=== PATIENT | male | born 1975 | race Caucasian/White ===

== ENCOUNTER 2023-09-15 05:14 | Inpatient (IN) | payer OTHER ==
[2023-09-15] VITALS (7 sets, daily range): BP systolic 120–144; BP diastolic 55–84; PULSE 62–76; RESP 18; TEMP 97.9–98.5; O2SAT 98–100
[~2023-09-15] VITALS: Ht 177.8 cm; Wt 89.4 kg
[2023-09-15] MEDS: SODIUM CHLORIDE 0.9% 1000ML 1,000 ML ONE (05:54)
[2023-09-15] MEDS: SODIUM CHLORIDE 0.9% 1000ML 1,000 ML IV SCH (05:55)
[2023-09-15] MEDS: Morphine 2mg Syringe 2 MG/ML SYR IV PRN ×2 (05:56→09:59)
[2023-09-15] MEDS ORDERED: no meds per pt (06:23)
[2023-09-15 07:36] LABS: BASOPHILS % 0.2 % (0.0-1.0); EOSINOPHILS # (AUTO) 0.1 (0.0-0.4); EOSINOPHILS % 1.4 % (0.0-6.0); HEMATOCRIT 38.9 % (38.2-49.6); HEMOGLOBIN 13.1 g/dL (14.0-18.0); LYMPHOCYTES # (AUTO) 1.9 (1.0-3.2); LYMPHOCYTES % 22.7 % (18.0-39.1); MEAN CORPUSCULAR HEMOGLOBIN 29.2 pg (28-32); MEAN CORPUSCULAR HGB CONC 33.7 g/dL (31-35); MEAN CORPUSCULAR VOLUME 86.8 fL (81-99); MONOCYTES # (AUTO) 0.7 (0.2-0.8); MONOCYTES % 8.2 % (4.4-11.3); NEUTROPHILS # (AUTO) 5.7 (2.1-6.9); NEUTROPHILS % 67.3 % (38.7-80.0); PLATELET COUNT 154 x10e3/uL (140-360); RED BLOOD COUNT 4.48 x10e6/uL (4.3-5.7); RED CELL DISTRIBUTION WIDTH 12.6 % (11.7-14.4); WHITE BLOOD COUNT 8.43 x10e3/uL (4.8-10.8)
[2023-09-15 07:58] LABS: ALBUMIN 3.5 g/dL (3.5-5.0); ALBUMIN/GLOBULIN RATIO 1.2 (0.8-2.0); ANION GAP 14.5 mmol/L (8-16); BILIRUBIN,TOTAL 0.7 mg/dL (0.2-1.2); CALCIUM 8.7 mg/dL (8.4-10.2); CREATININE, SERUM 0.92 mg/dL (0.72-1.25); POTASSIUM 4.5 mmol/L (3.5-5.1); TOTAL PROTEIN 6.5 g/dL (6.5-8.1)
[2023-09-15 08:55] LABS: CHOL/HDL RATIO 4.8 (3.9-4.7)
[2023-09-15] MEDS: KETOROLAC TROMETHAMINE 30 MG/ML VIAL IV PRN (15:37)
[2023-09-15] MEDS: ENOXAPARIN SOD INJ 40 MG/0.4 ML SYR SC SCH (17:07)
[2023-09-15] MEDS: MELATONIN 3 MG TAB PO SCH (23:15)
[2023-09-16] VITALS: BP 116/63; PULSE 66; RESP 18; TEMP 98.4; O2SAT 99
[2023-09-16 04:00] VITALS: BP 118/64; PULSE 65; RESP 18; TEMP 98.5; O2SAT 98
[2023-09-16 06:15] LABS: BASOPHILS % 0.4 % (0.0-1.0); EOSINOPHILS # (AUTO) 0.2 (0.0-0.4); HEMATOCRIT 37.6 % (38.2-49.6); HEMOGLOBIN 12.7 g/dL (14.0-18.0); LYMPHOCYTES # (AUTO) 2.3 (1.0-3.2); LYMPHOCYTES % 45.7 % (18.0-39.1); MEAN CORPUSCULAR HGB CONC 33.8 g/dL (31-35); MEAN CORPUSCULAR VOLUME 85.8 fL (81-99); MONOCYTES # (AUTO) 0.5 (0.2-0.8); MONOCYTES % 10.1 % (4.4-11.3); NEUTROPHILS % 40.6 % (38.7-80.0); PLATELET COUNT 173 x10e3/uL (140-360); RED BLOOD COUNT 4.38 x10e6/uL (4.3-5.7); RED CELL DISTRIBUTION WIDTH 12.5 % (11.7-14.4); WHITE BLOOD COUNT 4.97 x10e3/uL (4.8-10.8)
[2023-09-16 06:46] LABS: ALBUMIN 3.2 g/dL (3.5-5.0); ALBUMIN/GLOBULIN RATIO 1.2 (0.8-2.0); ANION GAP 12.4 mmol/L (8-16); BILIRUBIN,TOTAL 0.6 mg/dL (0.2-1.2); CALCIUM 9.5 mg/dL (8.4-10.2); CREATININE, SERUM 0.9 mg/dL (0.72-1.25); POTASSIUM 4.4 mmol/L (3.5-5.1); TOTAL PROTEIN 5.8 g/dL (6.5-8.1)
[2023-09-16 07:08] LABS: MAGNESIUM 1.9 MG/DL (1.3-2.1)
[2023-09-16 07:51] VITALS: BP 110/72; PULSE 65; RESP 12; TEMP 98; O2SAT 100
[2023-09-16 08:00] VITALS: BP 110/72; PULSE 65; RESP 12; TEMP 98; O2SAT 100
[2023-09-16 11:45] VITALS: BP 128/67; PULSE 68; RESP 16; TEMP 98.3; O2SAT 100
== END 2023-09-16 13:20 | disposition home or self-care (01) | DRG 440 ==
LOC: MED/SURG2 05:14
PROVIDERS: ADMIT Internal Medicine; ATTEND Internal Medicine
DX: K85.90 Acute pancreatitis without necrosis or infection, unspecified (principal); D64.9 Anemia, unspecified; E78.2 Mixed hyperlipidemia; K76.0 Fatty (change of) liver, not elsewhere classified
CPT/HCPCS: 36415; 76705; 80053; 80061; 83690; 83735; 85025; J1650; J1885; J2270; J2470; J7030